=== PATIENT | male | born 1995 | race Caucasian/White ===

== ENCOUNTER 2016-03-07 19:08 | Emergency (ER) | payer OTHER ==
[2016-03-07 19:18] VITALS: BP 128/78; PULSE 77; TEMP 97.8; BMI 23.1
--- NOTE | 2016-03-07 22:05 | PDOC ---
[id number] 4d WITHDRAWL SYMPTOMS History Source: Patient Exam Limitations: No Limitations - History of Present Illness Initial Comments: 20y M hx of paranoid schizophrenia, presents with anxiety. The pt denies SI/HI, but states that he has been having paranoid feers of someone scratching him and injecting something into him and modifying his genes. The pt states he has been ttaken off his meds and is currently on valium. The pt has a psycihtraist in [place]. The pt states he came to the ED to discuss his concerns. Past History - Past Medical History Allergies/Adverse Reactions: Allergies acetaminophen [From Tylenol] Allergy (Verified 03/07/16 19:13) loxapine Adverse Reaction (Severe, Verified 03/07/16 19:13) SEVERE SUICIDIAL AND HOMICIDAL IDEATIONS; STATES HE FELT PSYCHOTIC OUTBREAKS WHEN ON THIS MEDICINE FOR A MONTH AND A HALF LAST YEAR. Home Medications: Ambulatory Orders Alprazolam [Xanax] 0.25 mg PO Q4H PRN 03/07/16 Diazepam [Valium] 5 mg PO ONCE 03/07/16 - Immunization History Immunization Up to Date: Yes Tetanus Status: Unknown - Social History Smoking History: No Smoking Status: Never smoked Number of Cigarettes Per Day: 0 Cigars Per Day: 0 Alcohol Use: none Drug Use: marijuana *Review of Systems - Review of Systems Able to Perform ROS?: Yes Comments:: 03/07/16 22:12 Constitutional - no reported Fever, Chills, weakness, HEENT: no reported vision changes, sore throat Respiratory: no reported cough, sob, hemoptysis Cardiac: no reported chest pain, palpitations, light headedness, leg swelling Abd/GI: no reported abd pain, nausea, vomiting, blood per rectum, melena, diarrhea : no reported dysuria, frequency, discharge Musculskelatal - no reported back pain, joint swelling skin - no reported bruising, erythema, rash neurological: no reported headache, numbness, focal weakness, tingling, ataxia, weakness hematologic: no reported anemia, easy bruising, easy bleeding psych: anxiety/paranoia *Physical Exam - Vital Signs Last Vital Signs Temp Pulse Resp BP Pulse Ox 97.8 F 77 14 128/78 98 03/07/16 19:15 03/07/16 19:15 03/07/16 19:15 03/07/16 19:15 03/07/16 19:15 - Physical Exam Comments: 03/07/16 22:13 GENERAL: The patient is awake, alert, and fully oriented, Nontoxic - in no acute distress. HEAD: Normocephalic, atraumatic. EYES: extraocular movements intact, sclera anicteric, conjunctiva clear. ENT: Normal voice, Moist mucous membranes. NECK: Normal range of motion, supple LUNGS: Breath sounds equal, clear to auscultation bilaterally. No wheezes, no rhonchi, no rales. HEART: Regular rate and rhythm, normal S1 and S2 without murmur, rub or gallop. ABDOMEN: Soft, nontender, normoactive bowel sounds. No guarding, no rebound. . No CVA tenderness EXTREMITIES: Normal range of motion, no edema. No clubbing or cyanosis. No cords, erythema, or tenderness. NEUROLOGICAL: No facial assymetry, Normal speech, PSYCH: Normal mood, paranoid but logical, denies SI/HI SKIN: Warm, Dry, normal turgor, Plan - Progress Note Progress Note: 03/07/16 22:13 20 y present with paranoid delusions no si/hi i discussed the pts concerns and strategies to alleviate his paranoia will dc the pt home with his gf with elayne fish as outpatient return precuations were dsicussed I discussed the physical exam findings, ancillary test results and final diagnoses with the patient. I answered all of the patient's questions. The patient was satisfied with the care received and felt comfortable with the discharge plan and treatment plan. The patient will call their primary care physician within 24 hours to arrange follow-up and will return to the Emergency Department with any new, persistent or worsening symptoms. - Order(s) Order(s): Orders Medication Instructions Recorded Alprazolam [Xanax] 0.25 mg PO Q4H PRN 03/07/16 Diazepam [Valium] 5 mg PO ONCE 03/07/16 *DC/Admit/Observation/Transfer Diagnosis at time of Disposition: Anxiety, Paranoia - Discharge Dispostion Disposition: HOME Condition at time of disposition: Improved Admit: No - Patient Instructions Printed Discharge Instructions: DI for Anxiety -- Adult Additional Instructions: Return to the emergency department immediately with ANY new, persistent or worsening symptoms. Take your diazepam at night to allevate your anxiety and paranoid thorughts. See your psychiatrist when you get back to [facility]. You MUST call and follow up with your doctor tomorrow for further evaluation of your symptoms. Results were discussed with you. Please make sure your doctor reviews the results of your emergency evaluation. Print Language: [id number]
[2016-03-07] MEDS ORDERED: diazePAM 2 MG TABLET PO ONE (22:10)
[2016-03-07] MEDS ORDERED: diazePAM 2 MG TABLET ONE (22:18)
== END 2016-03-07 22:44 | disposition home or self-care (01) ==
LOC: JER 19:08
DX: F20.0 Paranoid schizophrenia (principal); F41.9 Anxiety disorder, unspecified
CPT/HCPCS: 99283-25

== ENCOUNTER 2016-08-09 20:12 | Emergency (ER) | payer OTHER ==
[2016-08-09 20:31] VITALS: BP 145/88; PULSE 93; TEMP 98.2; BMI 22.5
--- NOTE | 2016-08-09 20:38 | PDOC ---
History of Present Illness <Rosy Anguiano - Last Filed: 08/09/16 21:17> - History of Present Illness Initial Comments: 08/09/16 22:16 Patient is a 21 year old female with significant medical hx of OCD, anxiety disorder, and bipolar disorder who is presenting to the ED with lower abdominal discomfort since 5PM this evening. The patient reports burning sensation to the periumbilical region without any nausea, vomiting, dysuria, frequency or hematuria. He reports some diarrhea today. The patient endorses alcohol use last night and states that he should not be drinking on his medication. He also reports drinking caffeine and smoking several cigarettes today, making him feel jittery. Denies fever, chills. <Kassy Johnston - Last Filed: 08/09/16 22:20> - General Chief Complaint: Pain, Acute Stated Complaint: PAIN Time Seen by Provider: 08/09/16 20:32 Past History - Past Medical History Psychiatric Problems: Yes (schizo, anxiety, depression, bipolar) Suicide Attempt (Hx): No - Immunization History Immunization Up to Date: Yes - Psycho/Social/Smoking Cessation Hx Anxiety: No Suicidal Ideation: No Smoking Status: No Smoking History: Unknown if ever smoked Number of Cigarettes Smoked Daily: 0 Cigars Per Day: 0 Hx Alcohol Use: No Drug/Substance Use Hx: No Substance Use Type: None <Rosy Anguiano - Last Filed: 08/09/16 21:17> <Kassy Johnston - Last Filed: 08/09/16 22:20> - Past Medical History Allergies/Adverse Reactions: Allergies Allergy/AdvReac Type Severity Reaction Status Date / Time acetaminophen [From Tylenol] Allergy Verified 08/09/16 20:23 loxapine AdvReac Severe Verified 08/09/16 20:23 Home Medications: Ambulatory Orders Docusate Sodium [Colace -] 100 mg PO BID #20 capsule 08/09/16 Polyethylene Glycol 3350 [Miralax (For Daily Use) -] 17 gm PO DAILY PRN #1 bottle 08/09/16 Quetiapine Fumarate [Seroquel -] 200 mg PO BID 08/09/16 Risperidone [Risperdal] 3 mg PO BID 08/09/16 Trazodone HCl [Desyrel -] 100 mg PO HS 08/09/16 Review of Systems - Review of Systems Comments:: 08/09/16 22:16 CONSTITUTIONAL: Absent: fever, chills, diaphoresis, generalized weakness, malaise, loss of appetite HEENT: Absent: rhinorrhea, nasal congestion, throat pain, throat swelling, difficulty swallowing, mouth swelling, ear pain, eye pain, visual changes CARDIOVASCULAR: Absent: chest pain, syncope, palpitations, irregular heart rate, lightheadedness , peripheral edema RESPIRATORY: Absent: cough, shortness of breath, dyspnea with exertion, orthopnea, wheezing, stridor, hemoptysis GASTROINTESTINAL: Present: periumbilical discomfort, diarrhea Absent: abdominal distension, nausea, vomiting, constipation, melena, hematochezia GENITOURINARY: Absent: dysuria, frequency, urgency, hesitancy, hematuria, flank pain, genital pain MUSCULOSKELETAL: Absent: myalgia, arthralgia, joint swelling SKIN: Absent: rash, itching, pallor HEMATOLOGIC/IMMUNOLOGIC: Absent: easy bleeding, easy bruising, lymphadenopathy, frequent infections ENDOCRINE: Absent: unexplained weight gain, unexplained weight loss, heat intolerance, cold intolerance NEUROLOGIC: Absent: headache, focal weakness or paresthesia, dizziness, unsteady gait, seizure, mental status changes, bladder or bowel incontinence. PSYCHIATRIC: Absent: anxiety, depression, suicidal or homicidal ideation, hallucinations <Kassy Johnston - Last Filed: 08/09/16 22:20> *Physical Exam - Vital Signs Last Vital Signs Temp Pulse Resp BP Pulse Ox 98.2 F 93 H 20 145/88 97 08/09/16 20:27 08/09/16 20:27 08/09/16 20:27 08/09/16 20:27 08/09/16 20:27 <Rosy Anguiano - Last Filed: 08/09/16 21:17> - Vital Signs Last Vital Signs Temp Pulse Resp BP Pulse Ox 98.2 F 93 H 20 145/88 97 08/09/16 20:27 08/09/16 20:27 08/09/16 20:27 08/09/16 20:27 08/09/16 20:27 - Physical Exam Comments: 08/09/16 22:20 GENERAL: Well developed, well nourished. Awake and alert. No acute distress. HEENT: Normocephalic, atraumatic. PERRLA, EOMI. No conjunctival pallor. Sclera are non- icteric. Moist mucous membranes. Oropharynx is clear. NECK: Supple. Full ROM. No JVD. Carotid pulses 2+ and symmetric, without bruits. No thyromegaly. No lymphadenopathy. CARDIOVASCULAR: Regular rate and rhythm. No murmurs, rubs, or gallops. Distal pulses are 2+ and symmetric. PULMONARY: No evidence of respiratory distress. Lungs clear to auscultation bilaterally. No wheezing, rales or rhonchi. ABDOMINAL: Soft. Periumbilical tenderness. Non-distended. No rebound or guarding. No organomegaly. Normoactive bowel sounds. MUSCULOSKELETAL: Normal range of motion at all joints. No bony deformities or tenderness. No CVA tenderness. EXTREMITIES: No cyanosis. No clubbing. No edema. No calf tenderness. SKIN: Warm and dry. Normal capillary refill. No rashes. No jaundice. NEUROLOGICAL: Alert, awake, appropriate. Cranial nerves 2-12 intact. Normal speech. Gait is normal without ataxia. PSYCHIATRIC: Cooperative. Good eye contact. Appropriate mood and affect. <Kassy Johnston - Last Filed: 08/09/16 22:20> ED Treatment Course - ADDITIONAL ORDERS Additional order review: Laboratory Results 08/09/16 20:45 Urine Color Colorless Urine Appearance Clear Urine pH 6.0 Urine Protein Negative Urine Glucose (UA) Negative Urine Ketones Negative Urine Blood Negative Urine Nitrite Negative Urine Bilirubin Negative Urine Urobilinogen Negative Ur Leukocyte Esterase Negative - Medications Given in the ED: ED Medications Discontinued Medications Generic Name Dose Route Start Last Admin Trade Name Dimaq PRN Reason Stop Dose Admin Alprazolam 0.25 mg 08/09/16 21:22 08/09/16 21:37 Xanax - PO 08/09/16 21:23 0.25 mg ONCE ONE Administration Docusate Sodium 300 mg 08/09/16 22:00 08/09/16 21:48 Colace - PO 300 mg HS NELSON Administration <Kassy Johnston - Last Filed: 08/09/16 22:20> *DC/Admit/Observation/Transfer <Rosy Anguiano - Last Filed: 08/09/16 21:17> - Attestations Scribe Attestion: 08/09/16 22:20 Documentation prepared by Kassy Johnston, acting as medical assistant cardiology for Rosy Anguiano MD. <PrestonKassy - Last Filed: 08/09/16 22:20> Diagnosis at time of Disposition: Constipation Qualifiers: Constipation type: other constipation type Qualified Code(s): K59.09 - Other constipation - Discharge Dispostion Disposition: HOME Condition at time of disposition: Stable - Prescriptions Prescriptions: Docusate Sodium [Colace -] 100 mg PO BID #20 capsule Polyethylene Glycol 3350 [Miralax (For Daily Use) -] 17 gm PO DAILY PRN #1 bottle PRN Reason: Constipation - Referrals Referrals: Giovanni Bear MD [Primary Care Provider] - - Patient Instructions Printed Discharge Instructions: DI for Constipation Additional Instructions: please try miralax and colace for constipation
[2016-08-09] MEDS ORDERED: ALPRAZolam 0.25 MG TABLET PO ONE (21:22)
[2016-08-09] MEDS ORDERED: ALPRAZolam 0.25 MG TABLET ONE (21:27)
[2016-08-09] MEDS ORDERED: DOCUSATE SODIUM 100 MG CAPSULE (FP) PO ONE (21:28)
[2016-08-09 21:36] LABS: URINE APPEARANCE CLEAR; URINE BILIRUBIN NEGATIVE (NEGATIVE); URINE BLOOD NEGATIVE (NEGATIVE); URINE COLOR COLORLESS; URINE GLUCOSE (UA) NEGATIVE (NEGATIVE); URINE KETONE NEGATIVE (NEGATIVE); URINE LEUK ESTERASE NEGATIVE (NEGATIVE); URINE NITRITE NEGATIVE (NEGATIVE); URINE PROTEIN NEGATIVE (NEGATIVE); URINE UROBILINOGEN NEGATIVE E.U./dl (0.2-1.0)
[2016-08-09] MEDS ORDERED: DOCUSATE SODIUM 100 MG CAPSULE (FP) PO SCH (22:00)
== END 2016-08-09 21:52 | disposition home or self-care (01) ==
LOC: JER 20:12
DX: F31.9 Bipolar disorder, unspecified (principal); F41.9 Anxiety disorder, unspecified; F42.9 Obsessive-compulsive disorder, unspecified
CPT/HCPCS: 74000-TC; 81003; 99281-25

== ENCOUNTER 2017-06-12 17:38 | Emergency (ER) | payer OTHER ==
[2017-06-12 17:42] VITALS: BP 116/75; PULSE 75; TEMP 98.2; BMI 23.7
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
== END 2017-06-12 18:23 | disposition home or self-care (01) ==
LOC: JERFT 17:38
DX: H57.13 Ocular pain, bilateral (principal); F31.9 Bipolar disorder, unspecified; F41.9 Anxiety disorder, unspecified; F20.9 Schizophrenia, unspecified
CPT/HCPCS: 99281-25

== ENCOUNTER 2017-09-24 19:00 | Emergency (ER) | payer OTHER ==
[2017-09-24 19:47] VITALS: BP 129/98; PULSE 88; TEMP 97.7; BMI 29.9
--- NOTE | 2017-09-24 20:21 | PDOC ---
History of Present Illness - General Exam Limitations: No Limitations - History of Present Illness Initial Comments: Best Contact: PCP: Dr. Bear Pmhx: Bipolar, OCD, social anxiety, thyroid disorder Pshx:None Allergies:Loxaoine/hives, Tylenol/hives FH:0 Social Hx: Cigarettes/ 0 Alcohol/ 0 Drugs/0 LMP: N/A 22-year-old male presents to the emergency department him planing of believing there is a chip in his brain and a TV in his ear. Patient states he did not take his Depakote today. Patient states he believes the medication is evil. Patient denies suicidal/homicidal tendencies ideation. Patient denies fever, chills, nausea/vomiting, headache, dizziness, lightheadedness, facial pain, earache, sore throat, neck stiffness/pain, back pains, chest pain, shortness of breath, abdominal pains, flank pains, urinary symptoms: Frequency/urgency/ hesitancy, hematuria, Moises numbness or tingling sensation. I personally spoke to patient's mom, Carmina Jones on the phone who states patient is like this because he missed today's dose of Depakote. Patient's mom states when she gets off work as a [employer], she will calm and bring the patient home. <Selina Lundy - Last Filed: 09/24/17 23:32> <Chula Olsen - Last Filed: 09/25/17 00:27> - General Chief Complaint: Headache Stated Complaint: HEADACHE Time Seen by Provider: 09/24/17 19:51 Past History - Past Medical History COPD: No Psychiatric Problems: Yes (schizo, anxiety, depression, bipolar) - Immunization History Immunization Up to Date: Yes - Suicide/Smoking/Psychosocial Hx Smoking Status: No Smoking History: Never smoked Have you smoked in the past 12 months: No Number of Cigarettes Smoked Daily: 0 Cigars Per Day: 0 Information on smoking cessation initiated: No Hx Alcohol Use: No Drug/Substance Use Hx: No Substance Use Type: None <Selina Lundy - Last Filed: 09/24/17 23:32> <Chula Olsen - Last Filed: 09/25/17 00:27> - Past Medical History Allergies/Adverse Reactions: Allergies Allergy/AdvReac Type Severity Reaction Status Date / Time acetaminophen [From Tylenol] Allergy Verified 09/24/17 19:47 loxapine AdvReac Severe Verified 09/24/17 19:47 Home Medications: Ambulatory Orders Quetiapine Fumarate [Seroquel -] 200 mg PO BID 08/09/16 Risperidone [Risperdal] 3 mg PO BID 08/09/16 traZODone HCL [Desyrel -] 100 mg PO HS 08/09/16 Review of Systems - Review of Systems Able to Perform ROS?: Yes Comments:: 09/24/17 23:38 CONSTITUTIONAL: Absent: fever, chills, diaphoresis, generalized weakness, malaise, loss of appetite HEENT: Absent: rhinorrhea, nasal congestion, throat pain, throat swelling, difficulty swallowing, mouth swelling, ear pain, eye pain, visual Changes CARDIOVASCULAR: Absent: chest pain, loss of consciousness, palpitations, irregular heart rate, peripheral edema RESPIRATORY: Absent: cough, shortness of breath, dyspnea with exertion, orthopnea, wheezing, stridor, hemoptysis GASTROINTESTINAL: Absent: abdominal pain, abdominal distension, nausea, vomiting, diarrhea, constipation, melena, hematochezia GENITOURINARY: Absent: dysuria, frequency, urgency, hesitancy, hematuria, flank pain, genital pain MUSCULOSKELETAL: Absent: myalgia, arthralgia, joint swelling SKIN: Absent: rash, itching, pallor HEMATOLOGIC/IMMUNOLOGIC: Absent: easy bleeding, easy bruising, lymphadenopathy, frequent infections ENDOCRINE: Absent: unexplained weight gain, unexplained weight loss, heat intolerance, cold intolerance NEUROLOGIC: Absent: headache, focal weakness or paresthesias, dizziness, unsteady gait, seizure, mental status changes, bladder or bowel incontinence PSYCHIATRIC: +anxiety/depression Absent: suicidal or homicidal ideation, hallucinations. Is the patient limited [place]an proficient: No <Selina Lundy - Last Filed: 09/24/17 23:32> *Physical Exam - Vital Signs Last Vital Signs Temp Pulse Resp BP Pulse Ox 97.7 F 88 19 129/98 100 09/24/17 19:15 09/24/17 19:15 09/24/17 19:15 09/24/17 19:15 09/24/17 19:15 - Physical Exam Comments: 09/24/17 23:38 GENERAL: Well developed, well nourished. Awake and alert. No acute distress. HEENT: Normocephalic, atraumatic. PERRLA, EOMI. No conjunctival pallor. Sclera are non- icteric. Moist mucous membranes. Oropharynx is clear. NECK: Supple. Full ROM. No JVD. Carotid pulses 2+ and symmetric, without bruits. No thyromegaly. No lymphadenopathy. CARDIOVASCULAR: Regular rate and rhythm. No murmurs, rubs, or gallops. Distal pulses are 2+ and symmetric. PULMONARY: No evidence of respiratory distress. Lungs clear to auscultation bilaterally. No wheezing, rales or rhonchi. ABDOMINAL: Soft. Non-tender. Non-distended. No rebound or guarding. No organomegaly. Normoactive bowel sounds. MUSCULOSKELETAL Normal range of motion at all joints. No bony deformities or tenderness. No CVA tenderness. EXTREMITIES: No cyanosis. No clubbing. No edema. No calf tenderness. SKIN: Warm and dry. Normal capillary refill. No rashes. No jaundice. NEUROLOGICAL: Alert, awake, appropriate. Cranial nerves 2-12 intact. No deficits to light touch and temperature in face, upper extremities and lower extremities. No motor deficits in the in face, upper extremities and lower extremities. Normoreflexic in the upper and lower extremities. Normal speech. Toes are down- going bilaterally. Gait is normal without ataxia. PSYCHIATRIC: Patient was initially allow and boisterous, using profanity and being disruptive. Cooperative. Good eye contact. <Selina Lundy - Last Filed: 09/24/17 23:32> - Vital Signs Last Vital Signs Temp Pulse Resp BP Pulse Ox 97.7 F 88 19 129/98 100 09/24/17 19:15 09/24/17 19:15 09/24/17 19:15 09/24/17 19:15 09/24/17 19:15 <Chula Olsen - Last Filed: 09/25/17 00:27> Medical Decision Making - Medical Decision Making 09/24/17 20:45 Patient becoming increasingly agitated, loud, disruptive. Will give haldol/ ativan for his safety and for safety of staff. <Chula Olsen - Last Filed: 09/25/17 00:27> *DC/Admit/Observation/Transfer - Discharge Dispostion Decision to Admit order: No <Selina Lundy - Last Filed: 09/24/17 23:32> - Attestations Physician Attestion: I reviewed the case with the mid-level practitioner and agree with the mid- level practitioner's assessment, diagnosis and disposition. <Chula Olsen - Last Filed: 09/25/17 00:27> Diagnosis at time of Disposition: Bipolar disorder Qualifiers: Active/Remission status: currently active Current bipolar episode type: manic Current episode severity: mild Qualified Code(s): F31.11 - Bipolar disorder, current episode manic without psychotic features, mild - Discharge Dispostion Disposition: HOME Condition at time of disposition: Good - Referrals Referrals: Giovanni Bear MD [Primary Care Provider] - - Patient Instructions Printed Discharge Instructions: DI for Bipolar Disorder Additional Instructions: It is important that you take your medication Follow-up with your psychiatrist in 3 days as scheduled Return back to the emergency department for any concerns I, Carmina Jones is the mother of Roldan Craig. I will take full responsibility on bringing him home and caring for him. I will make sure that he sees his psychiatrist as scheduled for the week. I will either bring him back to the emergency department or call 911 for any concerns. I will assure that my son, Roldan Craig will take his Depakote this evening when we arrived home. I will be driving him home and will make sure that he does not drive tonight. X mother/Carmina Jones X Witness/Scottie PIERRE/ER - Post Discharge Activity
[2017-09-24] MEDS ORDERED: LORazepam 2 MG/ML SDV VIAL ONE (20:41)
[2017-09-24] MEDS ORDERED: HALOPERIDOL LACTATE 5 MG/ML ONE (20:41)
[2017-09-24] MEDS ORDERED: HALOPERIDOL LACTATE 5 MG/ML IM ONE (20:45)
[2017-09-24 21:57] LABS: URINE APPEARANCE CLEAR; URINE BILIRUBIN NEGATIVE (<2.0 mg/dL); URINE COLOR COLORLESS; URINE GLUCOSE (UA) NEGATIVE (NEGATIVE); URINE KETONE NEGATIVE (NEGATIVE); URINE LEUK ESTERASE NEGATIVE (NEGATIVE); URINE NITRITE NEGATIVE (NEGATIVE); URINE PROTEIN NEGATIVE (NEGATIVE); URINE UROBILINOGEN NEGATIVE mg/dL (0.2-1.0)
[2017-09-24 22:19] LABS: COCAINE, UR NEGATIVE ng/ml (CUTOFF=300); OPIATES, URI NEGATIVE ng/ml (CUTOFF=300); PHENCYCLIDINE,URINE NEGATIVE ng/ml (CUTOFF=25); URINE AMPHETAMINES NEGATIVE ng/ml (CUTOFF=500); URINE BARBITURATES NEGATIVE ng/ml (CUTOFF=200); URINE BENZODIAZEPINES NEGATIVE ng/ml (CUTOFF=200)
[2017-09-24 22:20] LABS: METHADONE, UR NEGATIVE ng/ml (CUTOFF=300)
== END 2017-09-24 23:35 | disposition home or self-care (01) ==
LOC: JER 19:00 → SUPCPDRO 19:00 → JER 23:35
PROC: 3E023NZ Introduction of Analgesics, Hypnotics, Sedatives into Muscle, Percutaneous Approach (ICD-10-PCS; principal; 2017-09-24)
PROC: 3E023NZ Introduction of Analgesics, Hypnotics, Sedatives into Muscle, Percutaneous Approach (ICD-10-PCS; 2017-09-24)
DX: R51 Headache (principal); F31.11 Bipolar disorder, current episode manic without psychotic features, mild; R20.9 Unspecified disturbances of skin sensation; F41.8 Other specified anxiety disorders; F40.10 Social phobia, unspecified; Z88.8 Allergy status to other drugs, medicaments and biological substances
CPT/HCPCS: 80307; 81003; 99281-25